=== PATIENT | female | born 1965 | race Two or more races ===

== ENCOUNTER → 2016-08-26 | Outpatient (CLI) | payer OTHER ==
[~2016-08-26] MED LIST: AMOXICILLIN500 M1 PO; BENADRYL PO; SKELAXIN PO; VICODIN 5/500 T1 TAB PO
--- NOTE | ~2016-08-26 | MY11 ---
[facility] A Service of [facility] RADIOLOGY TEXT RESULTS PATIENT: TAWNYA VENTURA LOCATION: [facility] : 65 UNIT #: [id number] AGE: [address]: NANDO MAHAJAN APRN SEX: F ORDER DR: [id number] [facility] [place] [address] [place], [place] [address] [id number] O MR#: [id number] #: [id number] NAME: TAWNYA VENTURA : 1965 SEX: F STUDY DATE/TIME: 08/26/2016 16:55 UNIT: [facility] ROOM: STUDY DESCRIPTION: MY Mammogram Screening Dig Gopi Attending Physician: Chaim Mahajan M.D. Ordering Physician: Chaim Mahajan M.D. Primary Care Physician: Teo Ruiz M.D. MEDICAL IMAGING REPORT This report is preliminary unless electronic signature is present EXAM Bilateral digital screening mammogram with CAD, 08/26/2016 HISTORY 51-year-old female for routine screening. No reported problems and no personal or family history of breast cancer. No surgeries. TECHNIQUE CC and MLO views were obtained and reviewed with an FDA-approved CAD device. COMPARISON 04/16/2015 FINDINGS Parenchyma is heterogeneously dense. This degrades sensitivity of screening mammography. The pattern is unchanged. There is no new dominant nodule or mass in either breast and no suspicious cluster of microcalcifications is seen. In the posterior nipple line left breast on the MLO view only, there is a 5.0 mm nodular asymmetry that was marked by the CAD system. This is likely to represent a summation artifact but is new compared to the only prior comparison study we have for the patient. Suggest a compression view and true lateral view for further assessment. If an abnormality persists ultrasound could be utilized for further assessment. IMPRESSION 5.0 mm asymmetry in the left breast. Additional views and potentially breast ultrasound recommended. Patients over the age of 40 are entered into a reminder system with target due date for the next mammogram. A result letter will also be sent to the patient. [facility] A Service of [facility] RADIOLOGY TEXT RESULTS PATIENT: TAWNYA VENTURA LOCATION: [facility] #: [id number] : [birth year] UNIT #: [id number] AGE: [address]: NANDO MAHAJAN APRN SEX: F ORDER DR: BIRADS 0 Incomplete: Need Additional Imaging Evaluation and/or Prior Mammograms for Comparison Dictated by... Norm Garvey M.D. THIS IS AN ELECTRONICALLY VERIFIED REPORT Norm Garvey M.D. at 08/27/2016 4:51 PM Shiv TD: 08/27/2016 12:06 JOB #: [id number] MEDICAL IMAGING REPORT COPY
== END | disposition home or self-care (01) ==
LOC: CWCC 16:43
DX: Z12.31 Encounter for screening mammogram for malignant neoplasm of breast (principal); N64.89 Other specified disorders of breast
CPT/HCPCS: G0202

== ENCOUNTER → 2016-09-05 | Outpatient (CLI) | payer OTHER ==
--- NOTE | ~2016-09-05 | MY7 ---
[facility] A Service of [facility] RADIOLOGY TEXT RESULTS PATIENT: TAWNYA VENTURA LOCATION: [facility] : 65 UNIT #: [id number] AGE: [address]: NANDO MAHAJAN APRN SEX: F ORDER DR: [id number] [facility]. [place], [place] [address] [id number] O MR#: [id number] Acc #: [id number] NAME: TAWNYA VENTURA : 1965 SEX: F STUDY DATE/TIME: 09/05/2016 12:22 UNIT: [facility] ROOM: STUDY DESCRIPTION: MY Mammogram Dx Dig Lt Attending Physician: Chaim Mahajan M.D. Ordering Physician: Chaim Mahajan M.D. Primary Care Physician: Teo Ruiz M.D. MEDICAL IMAGING REPORT This report is preliminary unless electronic signature is present EXAM Left digital diagnostic mammogram 09/05/2016 COMPARISON Screening mammograms dated 08/26/2016 and 04/16/2015 INDICATIONS 51-year-old female with a left breast asymmetry seen on MLO view at the junction of the middle and posterior thirds along the posterior nipple line. Further imaging evaluation was recommend. FINDINGS Spot compression MLO and full field ML views of the left breast were obtained. There are scattered fibroglandular densities. The finding of initial concern incompletely effaces but now has the appearance of a normal island of fibroglandular tissue and is stable going back to March 2015. This is consistent with summation artifact of normal fibroglandular tissue. There are no suspicious findings in the left breast. IMPRESSION No mammographic evidence of malignancy in the left breast. Finding of initial concern is consistent with summation artifact of normal overlapping fibroglandular tissues. Patient was instructed to report any new or worsening complaints to her primary care physician. Otherwise annual screening mammography is recommended. Patients over the age of 40 are entered into a reminder system with target due date for the next mammogram. A result letter will also be sent to the patient. BIRADS: 1 - Negative [facility] A Service of [facility] RADIOLOGY TEXT RESULTS PATIENT: TAWNYA VENTURA LOCATION: [facility] : 65 UNIT #: [id number] AGE: [address]: NANDO MAHAJAN APRN SEX: F ORDER DR: Dictated by... Dipak Oswald M.D. THIS IS AN ELECTRONICALLY VERIFIED REPORT Dipak Oswald M.D. at 09/07/2016 6:57 PM Gomez TD: 09/05/2016 15:24 JOB #: [id number] MEDICAL IMAGING REPORT COPY
== END | disposition home or self-care (01) ==
LOC: CMAM 11:40
DX: N64.89 Other specified disorders of breast (principal)
CPT/HCPCS: G0206